=== PATIENT | male | born 1955 | race Caucasian/White ===

== ENCOUNTER → 2018-07-20 | Outpatient (REF) | payer MEDICARE ==
[~2018-07-20] MED LIST: AVELOX400 MG OR; MORPHINE SUL100 MG OR; MORPHINE SUL30 MG OR; NAPROSYN500 MG PO
== END | disposition home or self-care (01) ==
LOC: ULTRASND 11:15
PROVIDERS: ATTEND Family Medicine
DX: I87.2 Venous insufficiency (chronic) (peripheral) (principal); I73.9 Peripheral vascular disease, unspecified; Z87.891 Personal history of nicotine dependence

== ENCOUNTER → 2018-07-28 | Outpatient (REF) | payer MEDICARE | END | disposition home or self-care (01) | LOC: ULTRASND 08:00 | PROVIDERS: ATTEND Family Medicine | DX: I87.2 Venous insufficiency (chronic) (peripheral) (principal); Z87.891 Personal history of nicotine dependence; I73.9 Peripheral vascular disease, unspecified ==

== ENCOUNTER 2022-05-30 13:01 | Inpatient (IN) | payer MEDICARE ==
[~2022-05-30] VITALS: Ht 170.2 cm; Wt 105.4 kg
[2022-05-30] VITALS (11 sets, daily range): BP systolic 120–172; BP diastolic 55–101
[2022-05-30 13:30] LABS: URINE BILIRUBIN - DIPSTICK NEGATIVE (NEGATIVE); URINE BLOOD DIPSTICK LARGE (NEGATIVE); URINE COLOR YELLOW; URINE GLUCOSE - DIPSTICK NEGATIVE (NEGATIVE); URINE KETONE TRACE mg/dL (NEGATIVE); URINE LEUK ESTERASE NEGATIVE (NEGATIVE); URINE PROTEIN - DIPSTICK 100 mg/dL (NEG-TRACE); URINE SPECIFIC GRAVITY >=1.030; URINE UROBILINOGEN - DIPSTICK 0.2 E.U./dL (0.2)
[2022-05-30 13:32] LABS: BASO% 0.2 % (0-3); EOS% 0.1 % (0-8); HEMATOCRIT 46.7 % (39.0-50.0); HEMOGLOBIN 14.4 g/dl (14.0-18.0); IMMATURE GRANULOCYTES 0.4 % (0.0-5.0); MEAN CELL VOLUME 91.7 fL CALC (80.0-100.0); MEAN CORPUSCULAR HGB 28.3 pG CALC (26.0-32.0); MEAN CORPUSCULAR HGB CONC 30.8 g/dL CAL (32.0-36.0); MONO% 6.5 % (2-13); NEUT# 7.38 thou/uL (1.82-7.42); NEUT% 86.8 % (42-76); RED BLOOD COUNT 5.09 mill/uL (4.70-6.10)
[2022-05-30 13:32] LABS: URINE NITRITE - DIPSTICK NEGATIVE (Negative)
[2022-05-30] MEDS ORDERED: LOSARTAN POTASS50 MG PO (13:35)
[2022-05-30] MEDS ORDERED: FUROSEMIDE20 MG PO (13:36)
[2022-05-30] MEDS ORDERED: CLONAZEPAM1 MG PO (13:37)
[2022-05-30] MEDS ORDERED: METHOCARBAMOL500 MG PO (13:38)
[2022-05-30] MEDS ORDERED: VITAMIN D350000 UNIT PO (13:39)
[2022-05-30] MEDS ORDERED: B125000 MCG SL (13:40)
[2022-05-30 13:45] LABS: URINE WBC 0-2 WBC/hpf (0-5)
[2022-05-30 13:54] LABS: ALKALINE PHOSPHATASE 63 u/l (38-126); ANION GAP 10 (6-22 (CALC)); BUN 13 mg/dL (8-23); BUN/CREATININE RATIO 16 (12-20 (CALC)); CARBON DIOXIDE 33 mmol/l (22-30); CHLORIDE 99 mmol/l (95-108); CREATININE 0.9 mg/dL (0.7-1.3); GFR FOR AFR.AMER. > 60 ML/MIN (>=60 (CALC)); GFR OTHER RACES > 60 ML/MIN (>=60 (CALC)); POTASSIUM 4.4 mmol/l (3.5-5.1); SODIUM 137 mmol/l (137-146)
[2022-05-30 13:57] LABS: ALBUMIN 4.6 g/dL (3.2-5.0); BILIRUBIN, TOTAL 0.7 mg/dL (0.0-1.4); SGOT/AST 57 u/l (19-48); TOTAL PROTEIN 8.7 g/dL (6.3-8.2)
[2022-05-30] MEDS ORDERED: MORPHINE SULFAT15 MG PO (16:37)
[2022-05-31] VITALS (27 sets, daily range): BP systolic 78–115; BP diastolic 45–70
[2022-05-31 05:28] LABS: BASO% 0.2 % (0-3); HEMATOCRIT 47.6 % (39.0-50.0); HEMOGLOBIN 14.1 g/dl (14.0-18.0); IMMATURE GRANULOCYTES 0.5 % (0.0-5.0); LYMPH% 13.2 % (15-41); MEAN CELL VOLUME 95.4 fL CALC (80.0-100.0); MEAN CORPUSCULAR HGB 28.3 pG CALC (26.0-32.0); MEAN CORPUSCULAR HGB CONC 29.6 g/dL CAL (32.0-36.0); MONO% 13.3 % (2-13); NEUT# 5.86 thou/uL (1.82-7.42); NEUT% 72.8 % (42-76); RED BLOOD COUNT 4.99 mill/uL (4.70-6.10); RED CELL DISTRI WIDTH 16.3 % (11.5-15.5)
[2022-05-31 05:46] LABS: ALBUMIN 4.3 g/dL (3.2-5.0); ALKALINE PHOSPHATASE 62 u/l (38-126); ANION GAP 10 (6-22 (CALC)); BUN 16 mg/dL (8-23); BUN/CREATININE RATIO 17 (12-20 (CALC)); CARBON DIOXIDE 35 mmol/l (22-30); CHLORIDE 97 mmol/l (95-108); CREATININE 0.9 mg/dL (0.7-1.3); GFR FOR AFR.AMER. > 60 ML/MIN (>=60 (CALC)); GFR OTHER RACES > 60 ML/MIN (>=60 (CALC)); MAGNESIUM 2.1 mg/dL (1.6-2.3); POTASSIUM 3.9 mmol/l (3.5-5.1); SGOT/AST 83 u/l (19-48); SODIUM 138 mmol/l (137-146); TOTAL PROTEIN 7.6 g/dL (6.3-8.2)
[2022-05-31 05:48] LABS: BILIRUBIN, TOTAL 0.2 mg/dL (0.0-1.4)
[2022-06-01] VITALS (81 sets, daily range): BP systolic 75–157; BP diastolic 42–139
[2022-06-01 05:29] LABS: BASO% 0.3 % (0-3); HEMATOCRIT 51.2 % (39.0-50.0); IMMATURE GRANULOCYTES 1.1 % (0.0-5.0); LYMPH% 16.5 % (15-41); MEAN CELL VOLUME 97.7 fL CALC (80.0-100.0); MEAN CORPUSCULAR HGB 28.6 pG CALC (26.0-32.0); MEAN CORPUSCULAR HGB CONC 29.3 g/dL CAL (32.0-36.0); MONO% 12.5 % (2-13); NEUT# 4.9 thou/uL (1.82-7.42); NEUT% 69.6 % (42-76); RED BLOOD COUNT 5.24 mill/uL (4.70-6.10); RED CELL DISTRI WIDTH 15.8 % (11.5-15.5)
[2022-06-01 05:45] LABS: ALBUMIN 4.3 g/dL (3.2-5.0); CREATININE 1.7 mg/dL (0.7-1.3); POTASSIUM 4.5 mmol/l (3.5-5.1); TOTAL PROTEIN 8.3 g/dL (6.3-8.2)
[2022-06-01 05:57] LABS: BILIRUBIN, TOTAL 0.4 mg/dL (0.0-1.4)
[2022-06-02] VITALS (91 sets, daily range): BP systolic 92–157; BP diastolic 49–93
[2022-06-02 06:31] LABS: BASO% 0.2 % (0-3); HEMOGLOBIN 13.7 g/dl (14.0-18.0); IMMATURE GRANULOCYTES 0.3 % (0.0-5.0); LYMPH% 8.5 % (15-41); MEAN CELL VOLUME 93.4 fL CALC (80.0-100.0); MEAN CORPUSCULAR HGB 28.4 pG CALC (26.0-32.0); MEAN CORPUSCULAR HGB CONC 30.4 g/dL CAL (32.0-36.0); MONO% 7.4 % (2-13); NEUT# 8.02 thou/uL (1.82-7.42); NEUT% 83.6 % (42-76); RED BLOOD COUNT 4.83 mill/uL (4.70-6.10); RED CELL DISTRI WIDTH 15.7 % (11.5-15.5)
[2022-06-02 06:37] LABS: HEMATOCRIT 45.1 % (39.0-50.0)
[2022-06-02 06:46] LABS: ANION GAP 10 (6-22 (CALC)); BUN 39 mg/dL (8-23); BUN/CREATININE RATIO 27 (12-20 (CALC)); CARBON DIOXIDE 35 mmol/l (22-30); CHLORIDE 95 mmol/l (95-108); CREATININE 1.4 mg/dL (0.7-1.3); GFR FOR AFR.AMER. > 60 ML/MIN (>=60 (CALC)); GFR OTHER RACES 51 ML/MIN (>=60 (CALC)); MAGNESIUM 2.3 mg/dL (1.6-2.3); SODIUM 136 mmol/l (137-146)
[2022-06-03] VITALS (18 sets, daily range): BP systolic 75–159; BP diastolic 55–91
[2022-06-03 05:58] LABS: HEMATOCRIT 44.7 % (39.0-50.0); HEMOGLOBIN 13.1 g/dl (14.0-18.0); MEAN CELL VOLUME 92.7 fL CALC (80.0-100.0); MEAN CORPUSCULAR HGB 27.2 pG CALC (26.0-32.0); MEAN CORPUSCULAR HGB CONC 29.3 g/dL CAL (32.0-36.0); RED BLOOD COUNT 4.82 mill/uL (4.70-6.10); RED CELL DISTRI WIDTH 15.5 % (11.5-15.5)
[2022-06-03 06:30] LABS: BUN 29 mg/dL (8-23); CARBON DIOXIDE 36 mmol/l (22-30); CHLORIDE 94 mmol/l (95-108); CREATININE 1.1 mg/dL (0.7-1.3); GFR FOR AFR.AMER. > 60 ML/MIN (>=60 (CALC)); GFR OTHER RACES > 60 ML/MIN (>=60 (CALC)); POTASSIUM 4.1 mmol/l (3.5-5.1); SODIUM 135 mmol/l (137-146)
[2022-06-03 07:54] LABS: MAGNESIUM 2.3 mg/dL (1.6-2.3)
[2022-06-04 00:23] VITALS: BP 102/82
[2022-06-04 05:02] VITALS: BP 141/70
[2022-06-04 06:12] LABS: ALBUMIN 3.6 g/dL (3.2-5.0); ALKALINE PHOSPHATASE 48 u/l (38-126); ANION GAP 8 (6-22 (CALC)); BASO% 0.3 % (0-3); BILIRUBIN, TOTAL 0.5 mg/dL (0.0-1.4); BUN 25 mg/dL (8-23); BUN/CREATININE RATIO 28 (12-20 (CALC)); CARBON DIOXIDE 37 mmol/l (22-30); CHLORIDE 94 mmol/l (95-108); CREATININE 0.9 mg/dL (0.7-1.3); EOS% 0.2 % (0-8); GFR FOR AFR.AMER. > 60 ML/MIN (>=60 (CALC)); GFR OTHER RACES > 60 ML/MIN (>=60 (CALC)); HEMATOCRIT 42.4 % (39.0-50.0); HEMOGLOBIN 13.2 g/dl (14.0-18.0); IMMATURE GRANULOCYTES 0.2 % (0.0-5.0); LYMPH% 12.4 % (15-41); MAGNESIUM 2.2 mg/dL (1.6-2.3); MEAN CELL VOLUME 92.8 fL CALC (80.0-100.0); MEAN CORPUSCULAR HGB 28.9 pG CALC (26.0-32.0); MEAN CORPUSCULAR HGB CONC 31.1 g/dL CAL (32.0-36.0); MONO% 8.7 % (2-13); NEUT# 4.93 thou/uL (1.82-7.42); NEUT% 78.2 % (42-76); POTASSIUM 4.1 mmol/l (3.5-5.1); RED BLOOD COUNT 4.57 mill/uL (4.70-6.10); SODIUM 136 mmol/l (137-146)
[2022-06-04 06:20] VITALS: BP 106/68; BP 126/70
[2022-06-04 06:31] LABS: SGOT/AST 213 u/l (19-48)
[2022-06-04 10:54] VITALS: BP 127/71
[2022-06-04] MEDS ORDERED: MORPHINE SUL30 MG OR (12:57)
[2022-06-04] MEDS ORDERED: MORPHINE SULFAT15 MG PO (12:57)
[2022-06-04 15:23] VITALS: BP 113/70
== END 2022-06-04 16:38 | disposition home health service (06) | DRG 193 ==
LOC: ED 13:01 → ED-I 14:04 → MS2 14:44 → ICU 14:44 → ED 14:44 → ICU 05-31 19:55 → MS2 06-03 13:39
PROVIDERS: Family Medicine; Internal Medicine; Internal Medicine Nephrology; Nurse Practitioner Family; ADMIT Internal Medicine; ATTEND Internal Medicine
PROC: 5A09357 Assistance with Respiratory Ventilation, Less than 24 Consecutive Hours, Continuous Positive Airway Pressure (ICD-10-PCS; principal; 2022-05-31)
PROC: 3E033XZ Introduction of Vasopressor into Peripheral Vein, Percutaneous Approach (ICD-10-PCS; 2022-05-31)
PROC: 5A0935A Assistance with Respiratory Ventilation, Less than 24 Consecutive Hours, High Flow/Velocity Cannula (ICD-10-PCS; 2022-06-01)
DX: J10.08 Influenza due to other identified influenza virus with other specified pneumonia (principal); A41.9 Sepsis, unspecified organism; J96.01 Acute respiratory failure with hypoxia; J96.22 Acute and chronic respiratory failure with hypercapnia; R65.20 Severe sepsis without septic shock; N17.9 Acute kidney failure, unspecified; I87.311 Chronic venous hypertension (idiopathic) with ulcer of right lower extremity; L97.819 Non-pressure chronic ulcer of other part of right lower leg with unspecified severity; J12.9 Viral pneumonia, unspecified; J15.9 Unspecified bacterial pneumonia; I95.89 Other hypotension; I11.0 Hypertensive heart disease with heart failure; I50.9 Heart failure, unspecified; L97.519 Non-pressure chronic ulcer of other part of right foot with unspecified severity; E86.9 Volume depletion, unspecified; R40.0 Somnolence; T40.605A Adverse effect of unspecified narcotics, initial encounter; E83.39 Other disorders of phosphorus metabolism; G89.29 Other chronic pain; M54.9 Dorsalgia, unspecified; E66.9 Obesity, unspecified; F17.200 Nicotine dependence, unspecified, uncomplicated; Z68.36 Body mass index [BMI] 36.0-36.9, adult; Z95.828 Presence of other vascular implants and grafts; Z79.891 Long term (current) use of opiate analgesic; Z20.822 Contact with and (suspected) exposure to COVID-19